=== PATIENT | male | born 2000 | race African-American/Black ===

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

== ENCOUNTER 2019-05-06 02:41 | Emergency (ER) | payer SELFPAY ==
[2019-05-06] MEDS ORDERED: Acetaminophen/Codeine 30-300mg Tablet ONE (04:24)
--- NOTE | 2019-05-06 07:41 | RAD ---
EXAM: XR Ankle Rt 3 View STANDARD PROVIDED CLINICAL HISTORY: Pain FINDINGS: There is no evidence for fracture or other acute osseous abnormality. Alignment appears anatomic. Leticia nt spaces appear preserved. IMPRESSION: No evidence for an acute osseous abnormality. If there is persistent clinical concern, conservative m anagement and follow-up imaging advised.
--- NOTE | 2019-05-06 07:44 | RAD ---
EXAM: XR Pelvis AP STANDARD PROVIDED CLINICAL HISTORY: Pain FINDINGS: There is no evidence for fracture or other acute osseous abnormality. Alignment appears anatomic. Leticia nt spaces appear preserved. IMPRESSION: No evidence for an acute osseous abnormality. If there is persistent clinical concern, conservative m anagement and follow-up imaging advised.
--- NOTE | 2019-05-06 08:06 | CT ---
PRELIMINARY REPORT/[facility]/EMERGENCY AFTER HOURS PROCEDURE: PROCEDURE INFORMATION: Exam: CT Chest Without Contrast Exam date and time: 05/06/2019 3:16 AM Clinical history: 18 years old, male; Injury or trauma; Fall; Initial encounter; Abrasion; Injury brett e: 05/06/2019; Injury details: States he fell down the stairs at apartment [facility]. Appears to be at [address] 4 ft up. Tenderness with RT ribs; Patient HX: He fell going down the steps TECHNIQUE: Imaging protocol: Computed tomography of the chest without contrast. Radiation optimization: All CT scans at this facility use at least one of these dose optimization techniques: automated exposure control; mA and/or kV adjustment per patient size (includes targeted exams where dose is matched to clinical indication); or iterative reconstruction. COMPARISON: No relevant prior studies available. FINDINGS: Lungs: No pulmonary contusion. Pleural space: No pneumothorax or hemothorax. Heart: Unremarkable. No cardiomegaly. No pericardial effusion. Mediastinum: Esophagus is unremarkable. Aorta: No traumatic aortic injury. No mediastinal hematoma, pneumomediastinum, or hemopericardium. Lymph nodes: Unremarkable. No enlarged lymph nodes. Bones/joints: Unremarkable. No acute fracture. Soft tissues: Unremarkable. IMPRESSION: No acute traumatic injury. Thank you for allowing us to participate in the care of your patient. Dictated and Authenticated by: Norm Duarte MD 05/06/2019 4:00 AM Central Time ([place] & [place]) FINAL REPORT: CT CHEST WITHOUT CONTRAST: PROVIDED CLINICAL HISTORY: Pain. COMPARISON: None. FINDINGS/IMPRESSION: Agree with the preliminary interpretation given by MAURICE. Transcribed Date/Time: 05/06/2019 8:19 AM
--- NOTE | 2019-05-06 08:07 | CT ---
PRELIMINARY REPORT/[facility]/EMERGENCY AFTER HOURS PROCEDURE: PROCEDURE INFORMATION: Exam: CT Cervical Spine Without Contrast Exam date and time: 05/06/2019 3:12 AM Clinical history: 18 years old, male; Injury or trauma; Fall; Initial encounter; Abrasion; Injury brett e: 05/06/19; Injury details: States he fell down the stairs at apartment complex after a step broke. Appears to be at least 4 ft up. Tenderness with palpating neck; Patient HX: He fell going down the steps TECHNIQUE: Imaging protocol: Computed tomography images of the cervical spine without contrast. Radiation optimization: All CT scans at this facility use at least one of these dose optimization techniques: automated exposure control; mA and/or kV adjustment per patient size (includes targeted e xams where dose is matched to clinical indication); or iterative reconstruction. COMPARISON: No relevant prior studies available. FINDINGS: Vertebrae: No acute fracture. Normal alignment. Discs/Spinal canal/Neural foramina: No spinal stenosis. No neural foraminal narrowing. Soft tissues: Unremarkable. Lungs: Lung apices are normal. IMPRESSION: No acute findings. Thank you for allowing us to participate in the care of your patient. Dictated and Authenticated by: Norm Duarte MD 05/06/2019 3:56 AM Central Time ([place] & [place]) FINAL REPORT: CT CERVICAL SPINE: PROVIDED CLINICAL HISTORY: Pain. COMPARISON: None FINDINGS/IMPRESSION: Agree with the preliminary interpretation given by MAURICE. Transcribed Date/Time: 05/06/2019 8:21 AM
== END 2019-05-06 05:00 | disposition home or self-care (01) ==
LOC: NAV ERS 02:41
DX: S13.4XXA Sprain of ligaments of cervical spine, initial encounter (principal); S93.401A Sprain of unspecified ligament of right ankle, initial encounter; S20.211A Contusion of right front wall of thorax, initial encounter; S70.01XA Contusion of right hip, initial encounter; I10 Essential (primary) hypertension; F31.9 Bipolar disorder, unspecified; F20.9 Schizophrenia, unspecified; F17.210 Nicotine dependence, cigarettes, uncomplicated; W10.9XXA Fall (on) (from) unspecified stairs and steps, initial encounter
CPT/HCPCS: 71250; 72125; 72170; 94799

== ENCOUNTER 2019-05-06 12:24 | Emergency (ER) | payer SELFPAY | END 2019-05-06 13:10 | disposition home or self-care (01) | LOC: NAV ERS 12:24 | DX: R07.81 Pleurodynia (principal); M25.471 Effusion, right ankle; F31.9 Bipolar disorder, unspecified; F20.9 Schizophrenia, unspecified; I10 Essential (primary) hypertension; F17.210 Nicotine dependence, cigarettes, uncomplicated; W10.9XXA Fall (on) (from) unspecified stairs and steps, initial encounter | CPT/HCPCS: 99281 ==